=== PATIENT | male | born 1980 | race Hispanic/Latino ===

== ENCOUNTER 2025-09-10 08:30 | Emergency (ER) | payer SELFPAY ==
[2025-09-10] MEDS ORDERED: Ondansetron PF 4 MG/2 ML Vial ONE (08:54)
[2025-09-10 09:02] LABS: #Basophils 0.03 10x3/uL (0.0-0.2); #Eosinophils 0.11 10x3/uL (0.0-0.5); #Monocytes 0.78 10x3/uL (0.0-1.1); #Neutrophils 5.64 10x3/uL (1.5-8.4); %Basophils 0.4 % (0.0-2.0); %Eosinophils 1.4 % (0.0-6.0); %Lymphocytes 14.0 % (18.0-47.0); %Monocytes 10.2 % (0.0-10.0); %Neutrophils 73.6 % (40.0-75.0); Hematocrit 29.0 % (38.8-50.0); Hemoglobin 8.8 g/dL (13.5-17.5); Mean Corpuscular Hemoglobin 22.5 pg (27.0-33.0); Mean Corpuscular Volume 74.2 fL (81.2-95.1); Platelet Count 206 10x3/uL (150-450); Red Blood Cell (RBC) Count 3.91 10x6/uL (4.32-5.72); White Blood Cell (WBC) Count 7.66 10x3/uL (3.5-10.5)
[2025-09-10 09:14] LABS: ALT (SGPT) 21 U/L (Less than 45); AST (SGOT) 80 U/L (11-34); Albumin 3.4 g/dL (3.1-4.5); Alkaline Phosphatase 117 U/L (40-110); Anion Gap 20 mmol/L (10-20); BUN (Urea Nitrogen) 4 mg/dL (8.9-20.6); Bilirubin, Total 0.8 mg/dL (0.3-1.2); Calc. Creatinine Clearance 0 mL/min (70-130); Calcium 8.6 mg/dL (7.8-10.44); Carbon Dioxide 23 mmol/L (22-29); Chloride 102 mmol/L (98-107); Globulin 5.2 g/dL (2.4-3.5); Glucose 219 mg/dL (70-105); Potassium 2.8 mmol/L (3.5-5.1); Sodium 142 mmol/L (136-145)
[2025-09-10 09:20] LABS: Acetaminophen Less than 10 mcg/mL (Less than 10)
[2025-09-10 09:29] LABS: Anisocytosis SLIGHT = 6-15 cells (100X) (0-5/hpf); Microcytosis SLIGHT = 6-15 cells (100X) (0-5/hpf); Platelet Adequacy Comment Appears Adequate
[2025-09-10 09:32] LABS: Salicylate Less than 8.0 mg/dL (Less than 8.0)
[2025-09-10] MEDS ORDERED: levETIRAcetam 500 MG (5 mL) VIAL ONE (09:35)
[2025-09-10 10:16] LABS: Glucose, Urine (Dipstick) Normal (Negative); Leukocyte 25 (Negative); Protein, Urine (Dipstick) 30 mg/dl (Neg-Trace); Specific Gravity, Urine 1.010 (1.005-1.030)
[2025-09-10] MEDS ORDERED: Droperidol 5 MG/2 ML VIAL ONE (10:22)
[2025-09-10 10:24] LABS: Cocaine Metabolite Screen Negative (Negative); THC/Cannabinoid Screen Negative (Negative); Tricyclic Screen Negative (Negative)
[2025-09-10 10:29] LABS: Bacteria/HPF Rare-Few HPF (None Seen); CAUTI Indications for Culture Alt mental st,lethar; RBC/HPF 0-3 HPF (0-3)
[2025-09-10 10:30] LABS: Urine Culture Reflex No No
== END 2025-09-10 12:40 | disposition home or self-care (01) ==
LOC: CSHERS 08:30
DX: R41.82 Altered mental status, unspecified (principal); E87.6 Hypokalemia; R56.9 Unspecified convulsions
CPT/HCPCS: 70450; 80053; 80177; 80306; 80307; 81001; 83605; 84146; 85025; 93005; 96374; 96375; J1790; J1953; J2405